=== PATIENT | female | born 1955 | race Hispanic/Latino ===

== ENCOUNTER 2020-03-30 12:26 | Emergency (ER) | payer SELFPAY ==
--- NOTE | 2020-03-30 13:28 | RAD REPORT ---
EXAM DESCRIPTION: CT - Head Brain Wo Cont - 03/30/2020 1:20 pm CLINICAL HISTORY: WEAKNESS Headache, drowsiness COMPARISON: No comparisons TECHNIQUE: All CT scans are performed using dose optimization technique as appropriate and may inclu de automated exposure control or mA/KV adjustment according to patient size. FINDINGS: No intracranial hemorrhage, hydrocephalus or extra-axial fluid collection.Postsurgical erma nges with dystrophic calcifications noted right temporal lobe.No areas of brain edema or evidence of midline shift. The paranasal sinuses and mastoids are clear. The calvarium is intact. IMPRESSION: No acute intracranial abnormality.
--- NOTE | 2020-03-30 13:36 | RAD REPORT ---
EXAM DESCRIPTION: RAD - Chest Single View - 03/30/2020 1:28 pm CLINICAL HISTORY: PAIN Chest pain. COMPARISON: No comparisons FINDINGS: Portable technique limits examination quality. The lungs are grossly clear. The heart is normal in size. No displaced fractures. IMPRESSION: No acute intrathoracic process suspected.
[2020-03-30 14:24] LABS: Absolute Lymphocytes (CBC) 2.2 K/uL (0.7-4.9); Basophils % 0.7 % (0-1.3); Hematocrit 39.3 % (36.0-45.0); Lymphocytes % 29.4 % (15.3-44.8); MPV 8.3 fL (7.6-11.3); RBC Red Blood Cell Count 4.55 M/uL (3.86-4.86)
[2020-03-30 14:25] LABS: Protime INR 0.99
[2020-03-30 15:03] LABS: ALT/SGPT 20 U/L (12-78); Albumin 3.9 g/dL (3.4-5.0); Alkaline Phosphatase 75 U/L (45-117); BUN Blood Urea Nitrogen 12 mg/dL (7-18); Bicarbonate 28 mmol/L (21-32); Bilirubin Direct < 0.1 mg/dL (0-0.2); Bilirubin Total 0.4 mg/dL (0.2-1.0); Glucose Level 90 mg/dL (74-106); NT PRO-BNP 16 pg/mL (<125); Protein, Total 7.2 g/dL (6.4-8.2); Sodium Level 142 mmol/L (136-145); Troponin (Emerg Dept Use Only) < 0.02 ng/mL (0.0-0.045)
[2020-03-30 15:10] LABS: AST/SGOT 18 U/L (15-37); Magnesium 2.5 mg/dL (1.8-2.4)
[2020-03-30] MEDS ORDERED: NA CHLORIDE 0.9% 1,000 ML ONE (15:54)
[2020-03-30 17:04] LABS: Urine Bacteria <20 /HPF (<20); Urine RBC <5 /HPF (NONE SEEN)
--- NOTE | 2020-03-30 17:25 | ER ---
Nurse's Notes [facility] Name: Susana Marx Age: 64 yrs Sex: Female : 1955 Arrival Date: 03/30/2020 Time: 12:28 Bed 30 Private MD: Diagnosis: Weakness Presentation: 03/30 12:32 Chief complaint: Patient states: "I had a flight Saturday and when the plane got up I aa5 started feeling nauseated and the doctor in the plane tried to check my blood pressure and at first they couldn't get because it was so low but finally they got a blood pressure reading and it was low, they also said my pulse was like 40". Pt reports generalized weakness since Saturday and nausea. 12:32 Acuity: NEENA 3 aa5 12:32 Method Of Arrival: Ambulatory aa5 12:32 Coronavirus screen: nausea. Ebola Screen: Patient negative for fever greater than or aa5 equal to 101.5 degrees Fahrenheit, and additional compatible Ebola Virus Disease symptoms. Initial Sepsis Screen: Does the patient meet any 2 criteria? No. Patient's initial sepsis screen is negative. Does the patient have a suspected source of infection? No. Patient's initial sepsis screen is negative. Risk Assessment: Do you want to hurt yourself or someone else? Patient reports no desire to harm self or others. Onset of symptoms was March 2020. Historical: - Allergies: 13:07 tramadol; aa5 13:07 Opioids - Morphine Analogues; aa5 13:07 Sulfa (Sulfonamide Antibiotics); aa5 13:07 Vicodin; aa5 - PMHx: 13:07 Hypothyroidism; aa5 - Immunization history:: Adult Immunizations up to date. - Social history:: Smoking status: Patient denies any tobacco usage or history of. Screenin:15 Abuse screen: Denies threats or abuse. Denies injuries from another. Nutritional zb screening: No deficits noted. Tuberculosis screening: No symptoms or risk factors identified. Fall Risk None identified. Assessment: 13:12 General: Appears in no apparent distress. comfortable, Behavior is calm, cooperative, zb appropriate for age, Reports feeling ill for > 3 days, fatigue for >3 days. Pain: Denies pain. Neuro: Level of Consciousness is awake, alert, obeys commands, Oriented to person, place, time, situation. Cardiovascular: Reports lightheadedness, nausea, vomiting, Denies chest pain, shortness of breath, Heart tones S1 S2 present Capillary refill < 3 seconds in bilateral fingers Patient's skin is warm and dry. Cardiovascular: Rhythm is sinus rhythm. Respiratory: Airway is patent Respiratory effort is even, unlabored, Respiratory pattern is regular, symmetrical. GI: Abdomen is round non-distended, Bowel sounds present X 4 quads. : No signs and/or symptoms were reported regarding the genitourinary system. EENT: Reports nasal congestion feeling like something is stuck in her throat. Derm: Skin is intact, is healthy with good turgor, Skin is dry, Skin is normal, Skin temperature is warm. Musculoskeletal: Circulation, motion, and sensation intact. Capillary refill < 3 seconds, in bilateral fingers. Range of motion: intact in all extremities. 14:12 Reassessment: Patient appears in no apparent distress at this time. Patient and/or zb family updated on plan of care and expected duration. Pain level reassessed. Patient is alert, oriented x 3, equal unlabored respirations, skin warm/dry/pink. pt c/o of lightheadness when standing. pt able to ambulated to restroom up ad alex. 15:12 Reassessment: Patient appears in no apparent distress at this time. Patient and/or zb family updated on plan of care and expected duration. Pain level reassessed. Patient is alert, oriented x 3, equal unlabored respirations, skin warm/dry/pink. orthostatic completed, notified ECP. 16:12 Reassessment: Patient appears in no apparent distress at this time. Patient and/or zb family updated on plan of care and expected duration. Pain level reassessed. Patient is alert, oriented x 3, equal unlabored respirations, skin warm/dry/pink. no c/o at this time. pt able to ambulate to restroom. 17:11 Reassessment: Patient appears in no apparent distress at this time. Patient and/or zb family updated on plan of care and expected duration. Pain level reassessed. Patient is alert, oriented x 3, equal unlabored respirations, skin warm/dry/pink. 18:12 Reassessment: Patient appears in no apparent distress at this time. Patient and/or zb family updated on plan of care and expected duration. Pain level reassessed. Patient is alert, oriented x 3, equal unlabored respirations, skin warm/dry/pink. pt d/c pending completion of IV fluids. Vital Signs: 12:32 BP 131 / 79; Pulse 61; Resp 16 S; Temp 98.4(O); Pulse Ox 97% on R/A; Pain 0/10; aa5 14:00 BP 122 / 76; Pulse 64; Resp 18; Pulse Ox 97% on R/A; zb 15:00 BP 129 / 82; Pulse 64; Resp 16; Pulse Ox 99% on R/A; zb 15:30 BP 130 / 68 RA Supine; Pulse 59 MON; zb 15:33 BP 143 / 95 Sitting; Pulse 59; zb 15:36 BP 135 / 106 Standing; Pulse 60; zb 16:30 BP 131 / 68; Pulse 62; Resp 16; Pulse Ox 99% on R/A; zb 17:30 BP 119 / 79; Pulse 64; Resp 16; Pulse Ox 99% on R/A; zb 18:14 BP 131 / 71; Pulse 57; Resp 14; Pulse Ox 98% on R/A; zb ED Course: 12:28 Patient arrived in ED. ag5 12:32 Arm band placed on Patient placed in an exam room, on a stretcher. aa5 12:59 [facility]C [facility]. kb 12:59 Tavon Garner MD is Attending Physician. kb 13:05 Triage completed. aa5 13:12 Radha Shelley, RN is Primary Nurse. zb 13:15 Patient has correct armband on for positive identification. threat monitoring analyst on. Pulse zb ox on. NIBP on. Door closed. Warm blanket given. 13:15 No provider procedures requiring assistance completed. zb 13:20 CT Head Brain wo Cont In Process Unspecified. EDMS 13:28 XRAY Chest (1 view) In Process Unspecified. EDMS 17:59 EKG done, by ED staff, reviewed by Kia PETERSEN. jl7 18:54 IV discontinued, intact, bleeding controlled, No redness/swelling at site. Pressure zb dressing applied. Administered Medications: 16:02 Drug: NS 0.9% 1000 ml Route: IV; Rate: 1000 ml; Site: left antecubital; zb 18:09 Follow up: Response: No adverse reaction; IV Status: Completed infusion; IV Intake: zb 1000ml Intake: 18:09 IV: 1000ml; Total: 1000ml. zb Outcome: 17:24 Discharge ordered by . blanca 18:53 Discharged to home ambulatory. zb 18:53 Condition: stable 18:53 Discharge instructions given to patient, Instructed on discharge instructions, follow up and referral plans. Demonstrated understanding of instructions, follow-up care. 18:54 Patient left the ED. zb Addendum: 04/04/2020 10:50 Addendum: COVID-19 Result: Negative result given to RN to notify pt. Notified pt of d m5 negative COVID 19 swab results. Pt advised that even with a negative test result they should remain in isolation until symptom free for 3 days without medication. Pt also advised to return to the ED for worsening symptoms. Signatures: Dispatcher [employer] EDMS Kia Barnes, OFFICE RN-C OFFICE RN-Valerie Valdivia, RN RN dm5 Deepti Bernardo, RN RN aa5 Julian Torres RN RN jl7 Leticia Moore5 Radha Shelley RN RN zb
--- NOTE | 2020-03-30 17:25 | EDPHYS ---
Physician Documentation [facility] Name: Susana Marx Age: 64 yrs Sex: Female : 1955 Arrival Date: 03/30/2020 Time: 12:28 Bed 30 Private MD: ED Physician Tavon Garner HPI: 03/30 13:12 This 64 yrs old Female presents to ER via Ambulatory with complaints of kb Weakness, Low Blood Pressure. 13:12 The patient presents with generalized weakness. Onset: The symptoms/episode kb began/occurred 5 day(s) ago. Context: occurred airplane, occurred while the patient was flying on airplane, sitting. just prior to the episode the patient experienced no apparent symptoms. Modifying factors: The symptoms are alleviated by nothing, the symptoms are aggravated by nothing. Associated signs and symptoms: Pertinent positives: chest pain, Pertinent negatives: abdominal pain, agitation, ataxia, blurred vision, combativeness, confusion, diaphoresis, focal weakness, head injury, headache, nausea, near-syncope, numbness, palpitations, , seizure, shortness of breath, syncope, tingling, vomiting. Severity of symptoms: At their worst the symptoms were moderate in the emergency department the symptoms are unchanged. Patient's baseline: Neuro: alert and fully oriented, Motor: no deficits, Ambulation: walks without assistance, Speech: normal. The patient has not experienced similar symptoms in the past. The patient has not recently seen a physician. Pt reports she was on an airplane on Saturday and became very weak. The doctor on board checked her, they couldn't get a bp at first because it was so low. States she felt a little better when she got off the flight so she got on a connecting flight and had the same thing happen so she laid on the floor of the plane. States she got home yesterday and felt ok during the flight here. Last night was feeling weak and thinks she had some chest pain. Today went to get a covid test and while waiting became diaphoretic and weak so they told her to come here for an evaluation.. Historical: - Allergies: 13:07 tramadol; aa5 13:07 Opioids - Morphine Analogues; aa5 13:07 Sulfa (Sulfonamide Antibiotics); aa5 13:07 Vicodin; aa5 - PMHx: 13:07 Hypothyroidism; aa5 - Immunization history:: Adult Immunizations up to date. - Social history:: Smoking status: Patient denies any tobacco usage or history of. ROS: 13:59 Constitutional: Negative for fever, chills, and weight loss, Neck: Negative for injury, kb pain, and swelling, Respiratory: Negative for shortness of breath, cough, wheezing, and pleuritic chest pain, Abdomen/GI: Negative for abdominal pain, nausea, vomiting, diarrhea, and constipation, Back: Negative for injury and pain, : Negative for injury, bleeding, discharge, and swelling, MS/Extremity: Negative for injury and deformity, Skin: Negative for injury, rash, and discoloration. 13:59 ENT: Positive for sore throat. 13:59 Cardiovascular: Positive for chest pain, Negative for edema, orthopnea, palpitations, paroxysmal nocturnal dyspnea. 13:59 Neuro: Positive for weakness. Exam: 13:59 Head/Face: Normocephalic, atraumatic. ENT: Nares patent. No nasal discharge, no kb septal abnormalities noted. Tympanic membranes are normal and external auditory canals are clear. Oropharynx with no redness, swelling, or masses, exudates, or evidence of obstruction, uvula midline. Mucous membranes moist. Neck: Trachea midline, no thyromegaly or masses palpated, and no cervical lymphadenopathy. Supple, full range of motion without nuchal rigidity, or vertebral point tenderness. No Meningismus. Chest/axilla: Normal chest wall appearance and motion. Nontender with no deformity. No lesions are appreciated. Cardiovascular: Regular rate and rhythm with a normal S1 and S2. No gallops, murmurs, or rubs. Normal PMI, no JVD. No pulse deficits. Respiratory: Lungs have equal breath sounds bilaterally, clear to auscultation and percussion. No rales, rhonchi or wheezes noted. No increased work of breathing, no retractions or nasal flaring. Abdomen/GI: Soft, non-tender, with normal bowel sounds. No distension or tympany. No guarding or rebound. No evidence of tenderness throughout. Skin: Warm, dry with normal turgor. Normal color with no rashes, no lesions, and no evidence of cellulitis. MS/ Extremity: Pulses equal, no cyanosis. Neurovascular intact. Full, normal range of motion. Neuro: Awake and alert, GCS 15, oriented to person, place, time, and situation. Cranial nerves II-XII grossly intact. Motor strength 4/5 in all extremities. Sensory grossly intact. Cerebellar exam normal. Normal gait. 13:59 Constitutional: The patient appears alert, awake, lethargic. 18:14 ECG was reviewed by the Attending Physician. kb Vital Signs: 12:32 BP 131 / 79; Pulse 61; Resp 16 S; Temp 98.4(O); Pulse Ox 97% on R/A; Pain 0/10; aa5 14:00 BP 122 / 76; Pulse 64; Resp 18; Pulse Ox 97% on R/A; zb 15:00 BP 129 / 82; Pulse 64; Resp 16; Pulse Ox 99% on R/A; zb 15:30 BP 130 / 68 RA Supine; Pulse 59 MON; zb 15:33 BP 143 / 95 Sitting; Pulse 59; zb 15:36 BP 135 / 106 Standing; Pulse 60; zb 16:30 BP 131 / 68; Pulse 62; Resp 16; Pulse Ox 99% on R/A; zb 17:30 BP 119 / 79; Pulse 64; Resp 16; Pulse Ox 99% on R/A; zb 18:14 BP 131 / 71; Pulse 57; Resp 14; Pulse Ox 98% on R/A; zb MDM: 12:59 Patient medically screened. kb 14:03 Data reviewed: vital signs, nurses notes. Data interpreted: Pulse oximetry: on room air kb is 97 %. Interpretation: normal. 16:10 Counseling: I had a detailed discussion with the patient and/or guardian regarding: the kb historical points, exam findings, and any diagnostic results supporting the discharge/admit diagnosis, lab results, radiology results, the need for outpatient follow up, a family practitioner, to return to the emergency department if symptoms worsen or persist or if there are any questions or concerns that arise at home. 17:23 ED course: Discussed diagnostics with pt. Gave pt option of staying for observation, kb but pt would rather go home. States she is feeling ok now and will return if symptoms return or worsen. . 17:24 ED course: PT ambulated to restroom with steady gait. kb 03/30 13:05 Order name: Basic Metabolic Panel; Complete Time: 15:24 kb 03/30 13:05 Order name: CBC with Diff; Complete Time: 14:33 kb 03/30 13:05 Order name: LFT's; Complete Time: 15:24 kb 03/30 13:05 Order name: Magnesium; Complete Time: 15:24 kb 03/30 13:05 Order name: NT PRO-BNP; Complete Time: 15:24 kb 03/30 13:05 Order name: PT-INR; Complete Time: 14:33 kb 03/30 13:05 Order name: Troponin (emerg Dept Use Only); Complete Time: 15:24 kb 03/30 13:05 Order name: XRAY Chest (1 view); Complete Time: 13:39 kb 03/30 13:05 Order name: CT Head Brain wo Cont; Complete Time: 13:39 kb 03/30 13:05 Order name: COVID-19 kb 03/30 14:02 Order name: Flu; Complete Time: 15:29 iw 03/30 15:55 Order name: Urine Dipstick--Ancillary (enter results) em1 03/30 16:10 Order name: Urine Microscopic Only; Complete Time: 17:09 kb 03/30 13:05 Order name: EKG; Complete Time: 13:06 kb 03/30 13:05 Order name: Cardiac monitoring; Complete Time: 15:15 kb 03/30 13:05 Order name: EKG - Nurse/Tech; Complete Time: 16:03 kb 03/30 13:05 Order name: IV Saline Lock; Complete Time: 16:03 kb 03/30 13:05 Order name: Labs collected and sent; Complete Time: 16:03 kb 03/30 13:05 Order name: O2 Per Protocol; Complete Time: 16:03 kb 03/30 13:05 Order name: O2 Sat Monitoring; Complete Time: 16:03 kb 03/30 13:06 Order name: Orthostatics; Complete Time: 15:38 kb 03/30 13:06 Order name: Urine Dipstick-Ancillary (obtain specimen); Complete Time: 15:54 kb EC:14 Rate is 61 beats/min. Rhythm is regular. QRS [place] is Normal. SD interval is normal at kb 190 msec. QRS interval is normal at 68 msec. QT interval is normal at 416 msec. Administered Medications: 16:02 Drug: NS 0.9% 1000 ml Route: IV; Rate: 1000 ml; Site: left antecubital; zb 18:09 Follow up: Response: No adverse reaction; IV Status: Completed infusion; IV Intake: zb 1000ml Disposition: 19:13 Co-signature as Attending Physician, Tavon Garner MD I agree with the assessment and kdr plan of care. Disposition: 03/30/20 17:24 Discharged to Home. Impression: Weakness. - Condition is Stable. - Discharge Instructions: Weakness, [id number]. - Medication Reconciliation Form, Thank You Letter, Antibiotic Education, Prescription Opioid Use form. - Follow up: Emergency Department; When: As needed; Reason: Worsening of condition. Follow up: Private Physician; When: 2 - 3 days; Reason: Recheck today's complaints, Continuance of care, Re-evaluation by your physician. Signatures: Dispatcher [employer] EDMS Kia Barnes, TREASURY SPECIALIST-C TREASURY SPECIALIST-Ckb Tavon Garner MD MD kdr Calderon, Audri RN RN Radha Polo RN RN zb Corrections: (The following items were deleted from the chart) 18:15 13:59 Neuro: kb kb 18:54 17:24 03/30/2020 17:24 Discharged to Home. Impression: Weakness. Condition is Stable. zb Forms are Medication Reconciliation Form, Thank You Letter, Antibiotic Education, Prescription Opioid Use. Follow up: Emergency Department; When: As needed; Reason: Worsening of condition. Follow up: Private Physician; When: 2 - 3 days; Reason: Recheck today's complaints, Continuance of care, Re-evaluation by your physician. kb
[2020-03-30 19:08] VITALS: TEMP 98.4
[2020-03-30 19:13] LABS: Urine Blood TRACE (NEG); Urine Glucose NEGATIVE (NEG); Urine Protein NEGATIVE (NEG)
[2020-03-30 19:18] VITALS: BP 131/71; O2SAT 98
--- NOTE | 2020-04-01 16:13 | EKG ---
Test Date: 2020-03-30 Test Time: 17:53:54 Bench Worker: ROGER MEASUREMENT RESULTS: Intervals: Rate: 59 LA: 196 QRSD: 70 QT: 438 QTc: 433 [place]: P: 2 LA: 196 QRS: 54 T: 40 INTERPRETIVE STATEMENTS: Sinus bradycardia Otherwise normal ECG No previous ECG available for comparison Electronically Signed On 04-01-20 16:09:48 COMPOSITION STONE APPLICATOR by Greg Yuan
--- NOTE | 2020-04-01 16:14 | EKG ---
Test Date: 2020-03-30 Test Time: 15:21:22 Interior Painter: LYLE MEASUREMENT RESULTS: Intervals: Rate: 61 AR: 190 QRSD: 68 QT: 416 QTc: 418 [place]: P: 68 AR: 190 QRS: 18 T: 22 INTERPRETIVE STATEMENTS: Normal sinus rhythm Normal ECG No previous ECG available for comparison Electronically Signed On 04-01-20 16:09:55 SENIOR DATA ARCHITECT by Greg Yuan
== END 2020-03-30 18:54 | disposition home or self-care (01) ==
LOC: ER 12:26
DX: R53.1 Weakness (principal); Z20.828 Contact with and (suspected) exposure to other viral communicable diseases; E03.9 Hypothyroidism, unspecified; Z88.2 Allergy status to sulfonamides; Z88.5 Allergy status to narcotic agent
CPT/HCPCS: 36415; 70450; 71045; 80048; 80076; 81003; 81015; 83735; 83880; 84484; 85025; 85610; 87804; 93005; 96360; 96361; 99284; J7030; U0002

== ENCOUNTER 2020-04-21 17:24 | Emergency (ER) | payer SELFPAY ==
--- OUTSIDE RECORDS SUMMARY | 2020-04-21 17:25 | XMS REPORT | Continuity of Care Document ---
:1955 Author Organization [facility] Address [address] [place] [address] Dr. Fontanez [address] [place] [id number] Care Team Providers Name Role Phone Unavailable Unavailable Unavailable Problems This patient has no known problems. Allergies, Adverse Reactions, Alerts This patient has no known allergies or adverse reactions. Medications This patient has no known medications. Procedures This patient has no known procedures. Results Test Description Test Time Test Comments Results Result [facility] e Comments DIAG MAMM 2020-04-18 BILATERAL TONY 10:42:00 CAD DIGITAL Name: Anahi : 1955 Sex: F - DIAG MAMM BILATERAL TONY CAD DIGITALBILATERAL DIGITAL DIAGNOSTIC MAMMOGRAM 3D/2D WITH CAD: 04/18/2020LINICAL: Focal pain, left breast. Digital breast tomosynthesis was performed in addition to routine CC and MLO views. Current mammographic images were evaluated by either a [employer] M-Vu or a [employer] ImageChecker CAD (computer aided detection system). Comparison is made to exam dated 12/12/2018 mammogram - [facility]. The tissue of both breasts is heterogeneously dense. This may lower the sensitivity of mammography. A 9 mm focal asymmetry, in the left upper outer quadrant, approximately 9 cm from the nipple.No suspicious mass, architectural distortion, malignant type calcification, or lymph node abnormality detected in the right breast. INCOMPLETE: ADDITIONAL IMAGING EVALUATION NEEDEDA 9 mm focal asymmetry, in the left upper outer quadrant, approximately 9 cm from the nipple. Bilateral survey ultrasound is recommended. - BREAST ULTRASOUND BILATERALULTRASOUND OF BOTH BREASTS: 04/18/2020omparison is made to exam dated 12/12/2018 mammogram - [facility]. Color flow and real-time ultrasound of both breasts were performed. Rudd scale images of the real-time examination were reviewed. Breast tissue has heterogenous background echotexture. Bilateral survey ultrasound demonstrates a few scattered simple cysts, but no suspicious sonographic abnormality. No axillary lymphadenopathy was seen.IMPRESSION: SUSPICIOUS OF MALIGNANCY - FOLLOW-UP RECOMMENDEDFocal asymmetry, in the left upper outer quadrant, posterior depth. BI-RADS 4. Tomosynthesis guided core biopsy is recommended at this time.Michel Peacock M.D. ss/:04/18/2020 10:42:00 Podiatric Aide: Latoya ROBBINS, [facility]-FWletter sent: BIRADS 4/5 Biopsy Mammogram BI-RADS: 0 Incomplete: Additional Imaging Evaluation Needed Ultrasound BI-RADS: 4a Suspicious abnormality - low suspicion for malignancy DIAG MAMM 2020-04-18 BILATERAL TONY 10:42:00 CAD DIGITAL Name: Anahi : 1955 Sex: F - DIAG MAMM BILATERAL TONY CAD DIGITALBILATERAL DIGITAL DIAGNOSTIC MAMMOGRAM 3D/2D WITH CAD: 04/18/2020LINICAL: Focal pain, left breast. Digital breast tomosynthesis was performed in addition to routine CC and MLO views. Current mammographic images were evaluated by either a [employer] M-Vu or a [employer] ImageChecker CAD (computer aided detection system). Comparison is made to exam dated 12/12/2018 mammogram - [facility]. The tissue of both breasts is heterogeneously dense. This may lower the sensitivity of mammography. A 9 mm focal asymmetry, in the left upper outer quadrant, approximately 9 cm from the nipple.No suspicious mass, architectural distortion, malignant type calcification, or lymph node abnormality detected in the right breast. INCOMPLETE: ADDITIONAL IMAGING EVALUATION NEEDEDA 9 mm focal asymmetry, in the left upper outer quadrant, approximately 9 cm from the nipple. Bilateral survey ultrasound is recommended. - BREAST ULTRASOUND BILATERALULTRASOUND OF BOTH BREASTS: 04/18/2020omparison is made to exam dated 12/12/2018 mammogram - [facility]. Color flow and real-time ultrasound of both breasts were performed. Rudd scale images of the real-time examination were reviewed. Breast tissue has heterogenous background echotexture. Bilateral survey ultrasound demonstrates a few scattered simple cysts, but no suspicious sonographic abnormality. No axillary lymphadenopathy was seen.IMPRESSION: SUSPICIOUS OF MALIGNANCY - FOLLOW-UP RECOMMENDEDFocal asymmetry, in the left upper outer quadrant, posterior depth. BI-RADS 4. Tomosynthesis guided core biopsy is recommended at this time.Michel Peacock M.D. ss/:04/18/2020 10:42:00 Podiatric Aide: Latoya ROBBINS, [facility]-FWletter sent: BIRADS 4/5 Biopsy Mammogram BI-RADS: 0 Incomplete: Additional Imaging Evaluation Needed Ultrasound BI-RADS: 4a Suspicious abnormality - low suspicion for malignancy BREAST ULTRASOUND 2020-04-18 BILATERAL 10:42:00 Name: Anahi : 1955 Sex: F - DIAG MAMM BILATERAL TONY CAD DIGITALBILATERAL DIGITAL DIAGNOSTIC MAMMOGRAM 3D/2D WITH CAD: 04/18/2020LINICAL: Focal pain, left breast. Digital breast tomosynthesis was performed in addition to routine CC and MLO views. Current mammographic images were evaluated by either a [employer] M-Vu or a [employer] CAD (computer aided detection system). Comparison is made to exam dated 12/12/2018 mammogram - [facility]. The tissue of both breasts is heterogeneously dense. This may lower the sensitivity of mammography. A 9 mm focal asymmetry, in the left upper outer quadrant, approximately 9 cm from the nipple.No suspicious mass, architectural distortion, malignant type calcification, or lymph node abnormality detected in the right breast. INCOMPLETE: ADDITIONAL IMAGING EVALUATION NEEDEDA 9 mm focal asymmetry, in the left upper outer quadrant, approximately 9 cm from the nipple. Bilateral survey ultrasound is recommended. - BREAST ULTRASOUND BILATERALULTRASOUND OF BOTH BREASTS: 04/18/2020omparison is made to exam dated 12/12/2018 mammogram - [facility]. Color flow and real-time ultrasound of both breasts were performed. Rudd scale images of the real-time examination were reviewed. Breast tissue has heterogenous background echotexture. Bilateral survey ultrasound demonstrates a few scattered simple cysts, but no suspicious sonographic abnormality. No axillary lymphadenopathy was seen.IMPRESSION: SUSPICIOUS OF MALIGNANCY - FOLLOW-UP RECOMMENDEDFocal asymmetry, in the left upper outer quadrant, posterior depth. BI-RADS 4. Tomosynthesis guided core biopsy is recommended at this time.Michel Peacock M.D. ss/:04/18/2020 10:42:00 Podiatric Aide: Latoya ROBBINS, [facility]-FWletter sent: BIRADS 4/5 Biopsy Mammogram BI-RADS: 0 Incomplete: Additional Imaging Evaluation Needed Ultrasound BI-RADS: 4a Suspicious abnormality - low suspicion for malignancy SCR MAMM 2018-12-16 - SCR MAMM BILATERAL BILATERAL TONY 10:09:00 TONY CAD CAD DIGITAL DIGITALBILATERAL DIGITAL SCREENING MAMMOGRAM 3D/2D WITH CAD: 12/12/2018CLINICAL: Asymptomatic. Digital breast tomosynthesis was performed in addition to routine CC and MLO views. Current mammographic images were evaluated by either a [employer] M-Vu or a [employer] ImageChecker CAD (computer aided detection system). No prior exams were available for comparison. The tissue of both breasts is heterogeneously dense. This may lower the sensitivity of mammography. There are benign calcifications in the left breast. No suspicious mass, architectural distortion, malignant type calcification, or lymph node abnormality detected. IMPRESSION: BENIGNThere is no mammographic evidence of malignancy. Resume annual screening mammography in one year. Felicity yang/leah:12/16/2018 10:09:00 Entry: trey - 12/18/2018 10:16:58Attending Technologist: Caitlyn Howard MM, [facility]aging Technologist: Delfina Morales MM, [facility]ammographyletter sent: BIRADS 1-2 Normal Mammogram BI-RADS: 2 Benign
[2020-04-21 20:02] LABS: Absolute Lymphocytes (CBC) 2.5 K/uL (0.7-4.9); Basophils % 0.6 % (0-1.3); Hematocrit 38.9 % (36.0-45.0); Lymphocytes % 35.4 % (15.3-44.8); MPV 8.5 fL (7.6-11.3); RBC Red Blood Cell Count 4.58 M/uL (3.86-4.86)
[2020-04-21 20:03] LABS: Protime INR 1.02
[2020-04-21] MEDS ORDERED: NA CHLORIDE 0.9% 1,000 ML ONE (20:09)
[2020-04-21 20:20] LABS: ALT/SGPT 22 U/L (12-78); AST/SGOT 16 U/L (15-37); Alkaline Phosphatase 81 U/L (45-117); BUN Blood Urea Nitrogen 13 mg/dL (7-18); Bicarbonate 26 mmol/L (21-32); Bilirubin Direct < 0.1 mg/dL (0-0.2); Bilirubin Total 0.5 mg/dL (0.2-1.0); Glucose Level 89 mg/dL (74-106); Lipase 202 U/L (73-393); Magnesium 2.5 mg/dL (1.8-2.4); NT PRO-BNP 32 pg/mL (<125); Potassium 3.9 mmol/L (3.5-5.1); Protein, Total 7.5 g/dL (6.4-8.2); Sodium Level 142 mmol/L (136-145); Troponin (Emerg Dept Use Only) < 0.02 ng/mL (0.0-0.045)
[2020-04-21 20:26] LABS: Urine Blood TRACE (NEG); Urine Glucose NEGATIVE (NEG); Urine Protein NEGATIVE (NEG); Urine Specific Gravity 1.025 (1.005-1.030); Urine pH 6.5 (5.0-7.0)
--- NOTE | 2020-04-21 20:35 | RAD REPORT ---
EXAM DESCRIPTION: RAD - Chest Single View - 04/21/2020 8:27 pm CLINICAL HISTORY: ABDOMINAL DISTENTION Chest pain. COMPARISON: Chest Single View dated 03/30/2020; Head Brain Wo Cont dated 03/30/2020 FINDINGS: Portable technique limits examination quality. The lungs are grossly clear. The heart is normal in size. No displaced fractures. IMPRESSION: No acute intrathoracic process suspected.
--- NOTE | 2020-04-21 21:08 | RAD REPORT ---
EXAM DESCRIPTION: CTAbdomen Pelvis W Contrast - 04/21/2020 8:55 pm CLINICAL HISTORY: Abdominal pain. ABD PAIN COMPARISON: No comparisons TECHNIQUE: Biphasic CT imaging of the abdomen and pelvis was performed with 100 ml non-ionic IV cont rast. All CT scans are performed using dose optimization technique as appropriate and may include automated exposure control or mA/KV adjustment according to patient size. FINDINGS: The lung bases are clear. The liver, spleen, pancreas, adrenal glands and kidneys are within normal limits. No bowel obstruction, free air, free fluid or abscess. The appendix is normal. No evidence of signi ficant lymphadenopathy. No suspicious bony findings. IMPRESSION: No acute intra-abdominal or pelvic finding.
--- NOTE | 2020-04-21 21:17 | ER ---
Nurse's Notes [facility] Name: Susana Marx Age: 64 yrs Sex: Female : 1955 Arrival Date: 04/21/2020 Time: 17:28 Bed 16 Private MD: Diagnosis: Abdominal tenderness Presentation: 04/21 17:38 Chief complaint: Patient states: RLQ abd pain for 2 weeks. More severe since last ll1 night. No fever. Some nausea at times. No dysuria. Coronavirus screen: Client denies travel out of the [place] in the last 14 days. At this time, the client does not indicate any symptoms associated with coronavirus-19. Ebola Screen: Patient denies travel to an Ebola-affected area in the 21 days before illness onset. Initial Sepsis Screen: Does the patient meet any 2 criteria? No. Patient's initial sepsis screen is negative. Does the patient have a suspected source of infection? Yes: Acute abdominal pain. Risk Assessment: Do you want to hurt yourself or someone else? Patient reports no desire to harm self or others. Onset of symptoms was April 14, 2020. 17:38 Method Of Arrival: Ambulatory ll1 17:38 Acuity: NEENA 3 ll1 Triage Assessment: 20:09 General: Appears comfortable, Behavior is calm, cooperative. Pain: Complains of pain in rv abdomen. EENT: No signs and/or symptoms were reported regarding the EENT system. Neuro: Level of Consciousness is awake, alert, obeys commands, Oriented to person, place, time, situation. Cardiovascular: Patient's skin is warm and dry. Respiratory: Airway is patent Respiratory effort is even, unlabored, Breath sounds are clear bilaterally. GI: Bowel sounds present X 4 quads. Reports lower abdominal pain. Historical: - Allergies: 17:38 Opioids - Morphine Analogues; ll1 17:38 Sulfa (Sulfonamide Antibiotics); ll1 17:38 tramadol; ll1 17:38 Vicodin; ll1 - PMHx: 17:38 Hypothyroidism; epilepsy; ll1 - PSHx: 17:38 l ovary removed; brain tumor removed; ll1 - Immunization history:: Flu vaccine is not up to date. - Social history:: Smoking status: Patient denies any tobacco usage or history of. - Family history:: not pertinent. Screenin:09 Abuse screen: Denies threats or abuse. Denies injuries from another. Nutritional rv screening: No deficits noted. Tuberculosis screening: No symptoms or risk factors identified. Fall Risk None identified. Assessment: 20:10 GI: Abd is soft and non tender. rv Vital Signs: 17:38 BP 147 / 80; Pulse 65; Resp 17; Temp 98.0; Pulse Ox 100% ; Weight 72.57 kg; Height 5 ll1 ft. 3 in. (160.02 cm); Pain 5/10; 20:10 Pulse 59; Resp 16; Pulse Ox 100% ; rv 21:00 BP 120 / 76; Pulse 62; Resp 16; Pulse Ox 100% on R/A; rr5 22:00 BP 123 / 74; Pulse 66; Resp 15; Pulse Ox 100% on R/A; rr5 17:38 Body Mass Index 28.34 (72.57 kg, 160.02 cm) ll1 ED Course: 17:28 Patient arrived in ED. mr 17:39 Triage completed. ll1 17:39 Arm band placed on. ll1 19:26 Carlos Martinez, JOE is Primary Nurse. rv 19:29 Tomasz Conway MD is Attending Physician. erma 20:10 Patient has correct armband on for positive identification. nuclear monitoring technician on. Pulse rv ox on. NIBP on. 21:15 Donal Tomlinson MD is Referral Physician. erma 22:07 No provider procedures requiring assistance completed. IV discontinued, intact, rr5 bleeding controlled, No redness/swelling at site. Pressure dressing applied. Administered Medications: 19:45 Drug: NS 0.9% 1000 ml Route: IV; Rate: 125 ml/hr; Site: left subclavian; rv 22:07 Follow up: IV Status: Completed infusion; IV Intake: 250ml rr5 20:40 CANCELLED (Duplicate Order): Flagyl 500 mg 100 ml IVPB at 200 ml/hr once over 30 mins erma Intake: 22:07 IV: 250ml; Total: 250ml. rr5 Outcome: 21:16 Discharge ordered by . erma 22:08 Discharged to home ambulatory. rv 22:08 Condition: good 22:08 Discharge instructions given to patient, Instructed on discharge instructions, follow up and referral plans. medication usage, Demonstrated understanding of instructions, follow-up care, medications, Prescriptions given X 3. 22:08 Patient left the ED. rv Signatures: Tomasz Conway MD MD cha Rivera, Susana mr Martinez, JOE Gonzalez RN rv Rodney Rincon RN RN rr5 Ronal Castillo RN RN ll1
--- NOTE | 2020-04-21 21:17 | EDPHYS ---
Physician Documentation [facility] Name: Susana Marx Age: 64 yrs Sex: Female : 1955 Arrival Date: 04/21/2020 Time: 17:28 Bed 16 Private MD: ED Physician Tomasz Conway HPI: 04/21 20:21 This 64 yrs old Female presents to ER via Ambulatory with complaints of erma Abdominal Pain. 20:21 The patient presents with abdominal pain right lower quadrant. Onset: The erma symptoms/episode began/occurred 2 week(s) ago. The symptoms do not radiate. Associated signs and symptoms: none. The symptoms are described as crampy, dull. Modifying factors: The symptoms are alleviated by nothing, the symptoms are aggravated by nothing. Severity of pain: At its worst the pain was moderate in the emergency department the pain is unchanged. The patient has not experienced similar symptoms in the past. Historical: - Allergies: 17:38 Opioids - Morphine Analogues; ll1 17:38 Sulfa (Sulfonamide Antibiotics); ll1 17:38 tramadol; ll1 17:38 Vicodin; ll1 - PMHx: 17:38 Hypothyroidism; epilepsy; ll1 - PSHx: 17:38 l ovary removed; brain tumor removed; ll1 - Immunization history:: Flu vaccine is not up to date. - Social history:: Smoking status: Patient denies any tobacco usage or history of. - Family history:: not pertinent. ROS: 20:21 Constitutional: Negative for fever, chills, and weight loss, Eyes: Negative for injury, erma pain, redness, and discharge, ENT: Negative for injury, pain, and discharge, Neck: Negative for injury, pain, and swelling, Cardiovascular: Negative for chest pain, palpitations, and edema, Respiratory: Negative for shortness of breath, cough, wheezing, and pleuritic chest pain, Back: Negative for injury and pain, : Negative for injury, bleeding, discharge, and swelling, MS/Extremity: Negative for injury and deformity, Skin: Negative for injury, rash, and discoloration, Neuro: Negative for headache, weakness, numbness, tingling, and seizure, Psych: Negative for depression, anxiety, suicide ideation, homicidal ideation, and hallucinations, Allergy/Immunology: Negative for hives, rash, and allergies, Endocrine: Negative for neck swelling, polydipsia, polyuria, polyphagia, and marked weight changes, Hematologic/Lymphatic: Negative for swollen nodes, abnormal bleeding, and unusual bruising. 20:21 Abdomen/GI: Positive for abdominal pain, abdominal cramps, of the suprapubic area and right lower quadrant. Exam: 20:21 Constitutional: This is a well developed, well nourished patient who is awake, alert, erma and in no acute distress. Head/Face: Normocephalic, atraumatic. Eyes: Pupils equal round and reactive to light, extra-ocular motions intact. Lids and lashes normal. Conjunctiva and sclera are non-icteric and not injected. Cornea within normal limits. Periorbital areas with no swelling, redness, or edema. ENT: Nares patent. No nasal discharge, no septal abnormalities noted. Tympanic membranes are normal and external auditory canals are clear. Oropharynx with no redness, swelling, or masses, exudates, or evidence of obstruction, uvula midline. Mucous membranes moist. Neck: Trachea midline, no thyromegaly or masses palpated, and no cervical lymphadenopathy. Supple, full range of motion without nuchal rigidity, or vertebral point tenderness. No Meningismus. Chest/axilla: Normal chest wall appearance and motion. Nontender with no deformity. No lesions are appreciated. Cardiovascular: Regular rate and rhythm with a normal S1 and S2. No gallops, murmurs, or rubs. Normal PMI, no JVD. No pulse deficits. Respiratory: Lungs have equal breath sounds bilaterally, clear to auscultation and percussion. No rales, rhonchi or wheezes noted. No increased work of breathing, no retractions or nasal flaring. Back: No spinal tenderness. No costovertebral tenderness. Full range of motion. Female : Normal external genitalia. Skin: Warm, dry with normal turgor. Normal color with no rashes, no lesions, and no evidence of cellulitis. MS/ Extremity: Pulses equal, no cyanosis. Neurovascular intact. Full, normal range of motion. Neuro: Awake and alert, GCS 15, oriented to person, place, time, and situation. Cranial nerves II-XII grossly intact. Motor strength 5/5 in all extremities. Sensory grossly intact. Cerebellar exam normal. Normal gait. Psych: Awake, alert, with orientation to person, place and time. Behavior, mood, and affect are within normal limits. 20:21 Abdomen/GI: Inspection: abdomen appears normal, Bowel sounds: normal, Palpation: moderate abdominal tenderness, in the suprapubic area and right lower quadrant, Liver: no appreciated palpable abnormalities, Hernia: not appreciated. 21:11 ECG was reviewed by the Attending Physician. [facility] Vital Signs: 17:38 BP 147 / 80; Pulse 65; Resp 17; Temp 98.0; Pulse Ox 100% ; Weight 72.57 kg; Height 5 ll1 ft. 3 in. (160.02 cm); Pain 5/10; 20:10 Pulse 59; Resp 16; Pulse Ox 100% ; rv 21:00 BP 120 / 76; Pulse 62; Resp 16; Pulse Ox 100% on R/A; rr5 22:00 BP 123 / 74; Pulse 66; Resp 15; Pulse Ox 100% on R/A; rr5 17:38 Body Mass Index 28.34 (72.57 kg, 160.02 cm) ll1 MDM: 19:29 Patient medically screened. erma 20:23 Differential diagnosis: appendicitis, diverticulitis, Mesenteric ischemia or erma infarction, non-specific abd pain, Pyelonephritis, Ureterolithiasis, urinary tract infection. Data reviewed: vital signs, nurses notes, lab test result(s), EKG, radiologic studies, CT scan. Data interpreted: residential monitor: rate is 59 beats/min, rhythm is regular, Pulse oximetry: on room air is 100 %. Test interpretation: by ED physician or midlevel provider: ECG, plain radiologic studies. Counseling: I had a detailed discussion with the patient and/or guardian regarding: the historical points, exam findings, and any diagnostic results supporting the discharge/admit diagnosis, lab results, radiology results. 04/21 19:31 Order name: Basic Metabolic Panel [facility] 04/21 19:31 Order name: CBC with Diff [facility] 04/21 19:31 Order name: LFT's [facility] 04/21 19:31 Order name: Magnesium [facility] 04/21 19:31 Order name: NT PRO-BNP [facility] 04/21 19:31 Order name: PT-INR [facility] 04/21 19:31 Order name: Troponin (emerg Dept Use Only) [facility] 04/21 19:31 Order name: Lipase [facility] 04/21 19:52 Order name: Urine Dipstick--Ancillary (enter results) 04/21 20:10 Order name: CBC with Automated Diff; Complete Time: 20:39 EDMS 04/21 20:17 Order name: Protime (+INR); Complete Time: 20:39 EDMS 04/21 20:20 Order name: Basic Metabolic Panel; Complete Time: 20:39 EDMS 04/21 20:20 Order name: Liver (Hepatic) Function; Complete Time: 20:39 EDMS 04/21 20:20 Order name: Troponin (Emerg Dept Use Only); Complete Time: 20:39 EDMS 04/21 19:31 Order name: XRAY Chest (1 view) [facility] 04/21 19:31 Order name: EKG; Complete Time: 19:32 [facility] 04/21 19:31 Order name: Cardiac monitoring; Complete Time: 20:32 [facility] 04/21 19:31 Order name: EKG - Nurse/Tech; Complete Time: 20:09 [facility] 04/21 19:31 Order name: IV Saline Lock; Complete Time: 20:09 [facility] 04/21 19:31 Order name: Labs collected and sent; Complete Time: 20:09 [facility] 04/21 19:31 Order name: O2 Per Protocol; Complete Time: 20:09 [facility] 04/21 19:31 Order name: CT Abd/Pelvis - IV Contrast Only [facility] 04/21 20:20 Order name: NT PRO-BNP; Complete Time: 20:39 EDMS 04/21 20:20 Order name: Magnesium; Complete Time: 20:39 EDMS 04/21 20:20 Order name: Lipase; Complete Time: 20:39 EDIL 04/21 20:26 Order name: Urine Dipstick-Ancillary; Complete Time: 20:39 EDIL 04/21 20:36 Order name: RAD; Complete Time: 20:39 EDMS 04/21 21:11 Order name: CT; Complete Time: 21:11 [facility] 04/21 19:31 Order name: O2 Sat Monitoring; Complete Time: 20:09 [facility] 04/21 19:31 Order name: Urine Dipstick-Ancillary (obtain specimen); Complete Time: 20:32 [facility] EC:11 Rate is 60 beats/min. Rhythm is regular. QRS [place] is Normal. OH interval is normal. QRS erma interval is normal. QT interval is normal. No Q waves. T waves are Normal. No ST changes noted. Clinical impression: Normal ECG and No evidence of ischemia. Interpreted by me. Reviewed by me. Administered Medications: 19:45 Drug: NS 0.9% 1000 ml Route: IV; Rate: 125 ml/hr; Site: left subclavian; rv 22:07 Follow up: IV Status: Completed infusion; IV Intake: 250ml rr5 20:40 CANCELLED (Duplicate Order): Flagyl 500 mg 100 ml IVPB at 200 ml/hr once over [address] [facility] Disposition: 04/21/20 21:16 Discharged to Home. Impression: Abdominal tenderness. - Condition is Stable. - Discharge Instructions: Abdominal Pain, Adult, Abdominal Pain, Adult, Badi-xl-Azfa. - Prescriptions for Bentyl 20 mg Oral Tablet - take 1 tablet by ORAL route every 6 hours As needed; 20 tablet. Pepcid 20 mg Oral Tablet - take 1 tablet by ORAL route every 12 hours for 10 days; 20 tablet. Zofran 4 mg Oral Tablet - take 1 tablet by ORAL route every 12 hours As needed; 20 tablet. - Medication Reconciliation Form, Thank You Letter, Antibiotic Education, Prescription Opioid Use form. - Follow up: Private Physician; When: 2 - 3 days; Reason: Recheck today's complaints, Continuance of care, Re-evaluation by your physician. Follow up: Donal Tomlinson MD; When: 2 - 3 days; Reason: Recheck today's complaints, Re-evaluation by your physician. - Problem is new. - Symptoms have improved. Signatures: Dispatcher [employer] Tomasz Whyte MD MD cha Vicente, Ronaldo, RN RN rv Rnoal Castillo RN RN ll1 Rodney Rincon RN rr5 Corrections: (The following items were deleted from the chart) 20:40 20:39 Flagyl 500 mg 100 ml IVPB at 200 ml/hr once over 30 mins ordered. [facility] 22:08 21:16 04/21/2020 21:16 Discharged to Home. Impression: Abdominal tenderness. Condition rv is Stable. Forms are Medication Reconciliation Form, Thank You Letter, Antibiotic Education, Prescription Opioid Use. Follow up: Private Physician; When: 2 - 3 days; Reason: Recheck today's complaints, Continuance of care, Re-evaluation by your physician. Follow up: Donal Tomlinson; When: 2 - 3 days; Reason: Recheck today's complaints, Re-evaluation by your physician. Problem is new. Symptoms have improved. erma
[2020-04-21 22:14] VITALS: TEMP 98; O2SAT 100
[2020-04-21 22:18] VITALS: BP 123/74
== END 2020-04-21 22:08 | disposition home or self-care (01) ==
LOC: ER 17:24
DX: R10.813 Right lower quadrant abdominal tenderness (principal); E03.9 Hypothyroidism, unspecified; Z88.2 Allergy status to sulfonamides; Z88.5 Allergy status to narcotic agent
CPT/HCPCS: 36415; 71045; 74177; 80048; 80076; 81003; 83690; 83735; 83880; 84484; 85025; 85610; 93005; 96360; 96361; 99284; J7030; Q9967